=== PATIENT | female | born 1975 | race Caucasian/White ===

== ENCOUNTER 2016-07-05 21:28 | Observation (INO) | payer OTHER ==
[~2016-07-05] VITALS: Ht 175.3 cm; Wt 114.0 kg
[~2016-07-05 21:28] MED LIST: BUSP15 PO; CITA10TA14 PO; LORA-781 PO; ONDA4TAB48 PO
[2016-07-05 21:33] VITALS: BP 138/97; PULSE 115; RESP 18; O2SAT 98
[2016-07-05 23:34] LABS: BASOPHILS % (AUTO) 0.3 % (0-3); EOSINOPHILS % (AUTO) 2.3 % (0-5); Mean Corpuscular Hemoglobin 31.5 pg (27.0-35.0); NEUTROPHILS % (AUTO) 66.1 % (40-74); Platelet Count 245 bil/L (150-400)
[2016-07-05 23:45] LABS: APPEARANCE,URINE CLEAR (CLEAR,HAZY); COLOR,URINE YELLOW (YELLOW); OCCULT BLOOD,URINE NEGATIVE (NEGATIVE); UROBILINOGEN,URINE NORMAL (NORMAL)
--- NOTE | 2016-07-05 23:51 | ED.REPORT ---
HPI-Neurologic Deficit Date of Service Jul 05, 2016 ED Provider: Costa Davis DO A 41 year old female with a medical history including fibromyalgia, Grave's disease, Raynaud's phenomenon and intermittent tachycardia presents to the ED accompanied by her spouse with waxing and waning facial numbness (right > left) onset 22:00 yesterday evening while laying in bed. The patient also reports mild aphasia, blurry vision, bilateral leg weakness, and tongue numbness onset just prior to arrival, which has now resolved. She denies fever. Nursing Notes Stated Complaint: FACE NUMB, HARD TIME SWALLOWING Chief Complaint: General Complaint Nursing Notes Reviewed: Yes Allergies: Coded Allergies: gluten (Verified Allergy, Severe, 07/06/16) confirmed celiac disease midazolam HCl (Verified Allergy, Severe, Anaphylaxis, 07/05/16) Penicillins (Verified Adverse Reaction, Unknown, 07/05/16) Sulfa (Sulfonamide Antibiotics) (Verified Adverse Reaction, Unknown, ) Uncoded Allergies: BENZYL PEROXIDE (Adverse Reaction, Unknown, face broke out, 10/18/15) Scheduled Baclofen (Baclofen) 20 Mg Tablet 40 MG PO HS Buspirone (Buspirone) 30 Mg Tablet 30 MG PO BID Cyclobenzaprine (Cyclobenzaprine) 10 Mg Tablet 10 MG PO TIDWM Pregabalin (Lyrica) 150 Mg Capsule 150 MG PO BID Quetiapine Fumarate (Quetiapine Fumarate) 300 Mg Tablet 300 MG PO HS Topiramate (Topamax) 25 Mg Tablet 25 MG PO HS hydrOXYzine Hcl (HydrOXYzine Hcl) 25 Mg Tablet 25 MG PO BIDAC hydrOXYzine Hcl (HydrOXYzine Hcl) 25 Mg Tablet 50 MG PO DAILYWD Miscellaneous Medications Buprenorphine (Butrans) 1 Each Patch.tdwk 1 EACH TD Duloxetine (Cymbalta) 60 Mg Capsule.dr 60 MG PO Ondansetron (Ondansetron) 4 Mg Tablet 4 MG PO General Time Seen by Provider: 22:47 Chief Complaint Other (Facial Numbness) Hx Obtained From: Patient, Spouse Arrived By: Walk-in Sudden in Onset?: Yes Onset Occurred: Yesterday Symptom Duration: Since onset Severity: Current: No pain currently Severity: Maximum: No pain Associated with: Denies: Fever Pertinent Negative: Relieved by nothing Immunizations: Unknown Recent Healthcare: No recent doctor visit Similar Sx Previous: No Risk Factors NIH Stroke Scale Level of Consciousness: Alert and responsive (0) Open/Close Eyes/Hand Pneumatic Tester: Performs both tasks (0) Horizontal EO Movements: None (0) Visual Bonds: No visual loss (0) Facial Palsy: Normal symmetry (0) Right Arm Motor Drift (10s): No drift 10 sec (0) Left Arm Motor Drift (10s): No drift 10 sec (0) Right Leg Motor Drift (5s): No drift 5 sec (0) Left Leg Motor Drift (5s): No drift 5 sec (0) Limb Ataxia FNF/Heel-Swanson: No ataxia (0) Language Aphasia: No aphasia, normal (0) Dysarthria: No dysarthria, normal (0) NIHSS Score: 0 Time NIHSS Performed: 23:48 Date NIHSS Performed: Jul 05, 2016 Past Medical History Past Medical History Fibromyalgia Osteoarthritis Celiacs disease Grave's disease Endometriosis Raynaud's Phenomenon Intermittent tachycardia Past Surgical History Reports: Cholecystectomy, Tonsillectomy Smoking History Current Every Day Smoker Social History Alcohol Use: Denies alcohol use Drug Use: Denies drug use Other Social History: , Lives with children 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 Ambulatory Status Independent Review of Systems Constitutional: Denies: Fever Eyes: Reports: Blurred bilateral Neurologic: Reports: Numbness (Facial R > L, tongue), Unable to speak (Mild aphasia), Weakness (Bilateral legs) Physical Exam Initial Vital Signs Vital Signs (First) Date Time Temp Pulse Resp B/P Pulse Ox O2 Delivery O2 Flow Rate FiO2 07/05/16 21:33 36.3 115 18 138/97 98 Room Air Initial VS: Reviewed Neck: Supple, Full range of motion Skin: Warm, Dry, No cyanosis General/Constitutional: Awake, Alert Behavior: Positive: Anxious Head / Eyes: Atraumatic, Normocephalic, EOMI Respiratory / Chest: Breath sounds NL, Breath sounds = bilat, No respiratory distress Cardiovascular: Regular rhythm, Heart sounds NL Heart Rate / Rhythm: Positive: Tachycardia Neurologic: Oriented X3, Speech NL, No motor deficits, No sensory deficits SEE NIH STROKE SCALE Psychiatric: Cognitive function NL Abnormal Mood/Affect: Positive: Anxious Interpretation & Diagnostics URINE DRUG SCREEN: + Tricyclic Antidepressants Otherwise Negative URINE TEST: Negative Lab Results Interpretation Result Diagram: 07/05/16231907/05/162319 Test 07/05/16 23:00 07/05/16 23:20 Urine Color Yellow (YELLOW) Urine Appearance Clear (CLEAR,HAZY) Urine pH 7.0 (5.0-8.0) Urine Specific [place] <1.005 (1.003-1.035) Urine Protein Negativemg/dL (NEG,TRACE) Urine Glucose (UA) Negativemg/dL (NEGATIVE) Urine Ketones Negativemg/dL (NEGATIVE) Urine Occult Blood Negative (NEGATIVE) Urine Nitrite Positive (NEGATIVE) Urine Bilirubin Negative (NEGATIVE) Urine Urobilinogen Normalmg/dL (NORMAL) Urine Leukocyte Esterase Negative (NEGATIVE) Urine RBC 0-2/hpf (0-2) Urine WBC 0-5/hpf (0-5) Urine Epithelial Cells Few/hpf (NONE-MOD) Urine Crystals None seen (NONE SEEN) Urine Bacteria Moderate/hpf (NONE-FEW) Urine Hyaline Casts None/lpf (NONE) Urine Granular Casts None seen (NONE SEEN) Urine Waxy Casts None seen (NONE SEEN) Urine Red Blood Cell Casts None seen (NONE SEEN) Urine White Blood Cell Casts None seen (NONE SEEN) Urine Mucus None seen (None Seen) Urine Trichomonas None seen (NONE SEEN) Urine Yeast None (NONE SEEN) Urinalysis Comment None Urine Culture Reflexed Indicated White Blood Count 7.5th/mm3 (3.8-10.1) Red Blood Count 4.63mil/mm3 (3.90-5.20) Hemoglobin 14.6g/dL (12.0-15.6) Hematocrit 42.6% (35.0-46.0) Mean Corpuscular Volume 92.0fL (81-100) Mean Corpuscular Hemoglobin 31.5pg (27.0-35.0) Mean Corpuscular Hemoglobin Concent 34.3% (32.0-37.0) Red Cell Distribution Width 13.0% (12.3-15.4) Platelet Count 245bil/L (150-400) Neutrophils (%) (Auto) 66.1% (40-74) Lymphocytes (%) (Auto) 22.5% (14-46) Monocytes (%) (Auto) 8.0% (4-12) Eosinophils (%) (Auto) 2.3% (0-5) Basophils (%) (Auto) 0.3% (0-3) Sodium Level 138mEq/L (134-144) Potassium Level 3.9mEq/L (3.5-5.2) Chloride Level 103mEq/L (97-108) Carbon Dioxide Level 21mmol/L (18-29) Blood Urea Nitrogen 6mg/dL (6-24) Creatinine 0.80mg/dL (0.57-1.00) Estimat Glomerular Filtration Rate 113mL/min (>59) Glucose Level 109mg/dL (60-99) Calcium Level 8.8mg/dL (8.5-10.1) Total Bilirubin 0.5mg/dL (0.0-1.2) Aspartate Amino Transf (AST/SGOT) 23U/L (0-50) Alanine Aminotransferase (ALT/SGPT) 25U/L (0-32) Alkaline Phosphatase 70U/L (25-150) Total Protein 7.7g/dL (6.4-8.4) Albumin 4.3g/dL (3.4-5.0) Triglycerides Level 101mg/dL (0-149) Cholesterol Level 179mg/dL (100-199) LDL Cholesterol, Calculated 120.800mg/dL (0-99) VLDL Cholesterol 20.200mg/dL HDL Cholesterol 38mg/dL (>39) Cholesterol/HDL Ratio 4.71 (0.0-4.4) HCG Beta Subunit < 0.500mIU/mL Hold Willams Top Tube Received (Received) ECG Interpretation ECG Interpretation: Sinus tachycardia rate 106 Otherwise normal Time: 22:11 Interpreted by: ED physician CT Head Interpretation CONCLUSION: Normal non-contrast CT scan of the head. Transmitted to ED at 07/06/2016 - 1:42:18 AM PST Study: Head CT no contrast Interpretation / Wet Read by: Interpret - Radiologist Re-Eval/Medical Decision Med Decision/Clinical Course 41-year-old female presents with potential vascular territory stroke symptoms. Her deficits have resolved. Her exam is consistent with possible TIA. CT was normal. We will start her on aspirin therapy and admit for the remainder of a stroke workup. Source of Hx: Old records Re-Evaluation/Progress : Time of Eval: 23:56 Patient Status: Condition improved Re-Evaluation/Progress Note: Discussed with patient diagnosis and plan for admit. Patient agrees with plan for care and all questions were addressed. Consultation : Referral / Consult Name: Alexx Herr MD Consulted With: Hospitalist Call Returned at: 03:04 Haircutter: Agrees with eval, Agrees with plan, Accepts admit Counseled Regarding: Diagnosis, Need for admission Discharge & Departure Impression: Primary Impression: TIA (transient ischemic attack) Transient cerebral ischemia type: unspecified Qualified Code: G45.9 - Transient cerebral ischemic attack, unspecified Additional Impression: UTI (urinary tract infection) Urinary tract infection type: acute cystitis Hematuria presence: without hematuria Qualified Code: N30.00 - Acute cystitis without hematuria Disposition: ADMITTED TO HOSPITAL Discharge Condition All VS Reviewed: Yes Condition: Stable Referrals: Daniel Narvaez MD (PCP) Zuleika Attestation Portions of this note were transcribed by Vanessa Horn. I, Dr. Davis, personally performed the history, physical exam, and medical decision-making; I reviewed and confirmed the accuracy of the information in the transcribed note. Signed by: Zuleika Champion, 07/06/2016, 03:14 copies to: Daniel Narvaez MD, Todd P DO Jul 05, 2016 23:51 VANESSA HORN Jul 06, 2016 00:01
[2016-07-06] VITALS (10 sets, daily range): BP systolic 108–144; BP diastolic 72–90; PULSE 93–112; RESP 14–20; O2SAT 96–99
[2016-07-06] MEDS ORDERED: Nitrofurantoin Monohyd-Macrocryst 100 mg Capsule PO ONE (02:00)
[2016-07-06] MEDS ORDERED: Alum-Mag Hydrox-Simeth 30 mL Suspension PO PRN (03:45)
[2016-07-06] MEDS ORDERED: Polyethylene Glycol (PEG) 17 Gm Powder PO PRN (03:45)
--- NOTE | 2016-07-06 04:28 | PCM.HPMED ---
Subjective Date of Service Jul 06, 2016 Primary Provider: Admitting Physician: Alexx Herr MD Primary Care Physician: Daniel Narvaez MD Attending Physician: Alexx Herr MD Chief Complaint: Facial numbness, aphasia History of Present Illness: Patient is a 41 year old female with a history of tachycardia, fibromyalgia, Celiac disease, Raynaud's, and endometriosis. She presented to [facility] on with facial numbness. She reports the first incident happened yesterday while she was laying in bed. She compared that feeling to getting your mouth numbed for dental work. It lasted for a period of minutes and resolved spontaneously. Today it happened again while she was sitting on the couch talking with her . She had right sided facial numbness followed by aphasia, difficulty swallowing and difficulty moving her tongue. She also reported some blurry vision and a sensation of her eyes being heavy. She states that her told her it appeared the right eye was drooping. It lasted for a period of minutes that then resolved spontaneously. She denies any unusual weakness of her extremities. She denies any fever or chills. She has not had cold or flu type symptoms recently. She denies chest pain, shortness of breath, nausea, vomiting and diarrhea. She does report some dysuria. She has an ongoing issue with urinary incontinence and recently began using a new brand of pads. The dysuria began after that as well as mild suprapubic pain and low back pain. In the ED the patient is afebrile with a heart rate of 115, respiratory rate of 18, blood pressure of 138/97, and O2 saturation of 98% on room air. Labs were unremarkable. CT head was normal. Patient admitted to complete work up for TIA. Discussed with Dr. Davis. Review of Systems: A comprehensive review of systems was conducted with the patient and found to be negative except as above in the history of present illness. Allergies Coded Allergies: gluten (Verified Allergy, Severe, 07/06/16) confirmed celiac disease midazolam HCl (Verified Allergy, Severe, Anaphylaxis, 07/05/16) Penicillins (Verified Adverse Reaction, Unknown, 07/05/16) Sulfa (Sulfonamide Antibiotics) (Verified Adverse Reaction, Unknown, ) Uncoded Allergies: BENZYL PEROXIDE (Adverse Reaction, Unknown, face broke out, 5/14/16) Home Medications Incomplete per patient recall: Topamax Hydroxyzine TID Cyclobenzaprine TID Cymbalta 60 mg QAM, 30 mg QPM Seroquel HS Buspar BID Lyrica BID Butran patch 10 mcg/hr once weekly PMH Fibromyalgia Tachycardia (undergoing workup) Celiac disease (strict gluten free diet) Raynaud's phenomenon Endometriosis Grave's disease (reportedly in remission) Family History Aunt - [place] with history of stroke Dad - [place] at age 40; brain tumor with seizures Mom - CAD, atrial fibrillation, Type 2 DM Social History Hx Alcohol Use: No Hx Substance Use: No Hx Tobacco Use: Yes (smoked for 1 year, quit 2 years ago) Smoking Status: Former Smoker Living Arrangement: with Family Exam Vital Signs Vital Sign - Last Date Time Temp Pulse Resp B/P Pulse Ox O2 Delivery O2 Flow Rate FiO2 07/06/16 02:40 37 112 18 144/86 99 Room Air Exam Alert and oriented x3, no acute distress but anxious Head atraumatic, normocephalic PERRLA, EOMI, sclera anicteric; peripheral vision intact Mucus membranes moist, no oral thrush observed No cervical lymphadenopathy, neck supple, nontender No JVD noted Cardiac tones regular rate and rhythm with no murmur appreciated Lungs clear to auscultation bilaterally with adequate respiratory effort No abdominal tenderness, non-distended, normoactive bowel tones, soft Fitzgerald absent Radial pulses normal and equivalent bilaterally, dorsalis pedis pulses normal and equivalent bilaterally No cyanosis, clubbing or edema No ulcerations/open wounds Cranial nerves appear to be fully intact, normal speech, patient can move upper and lower limbs grossly; muscle strength intact in the upper and lower extremities, negative [id number], negative [id number] Lab and Diagnostics Result Diagram: 07/05/16 23207/05/16 2320 X-Rays, CTs and MRIs CT head: Normal non-contrast CT of the head. J Carlos Burkett, 12-lead ECG Rate 115 QTc 431 Sinus tachycardia Assessment & Plan Patient is a 41 year old female with a history of tachycardia, fibromyalgia, Celiac disease, Raynaud's, and endometriosis. She presented to [facility] on with facial numbness, aphasia, dysphagia, and possible facial droop. Symptoms have resolved and CT negative. Plan to admit for further workup of CVA. 1. Possible TIA/stroke, acute, present on admission. - Risk factors include obesity, smoking history, family history of vascular disease. - MR stroke protocol ordered and pending. - Echocardiogram ordered and pending. - A1c, lipid panel ordered and pending. - Begin aspirin 81 mg daily. - Begin atorvastatin 40 mg HS. - Physical therapy evaluation ordered. - Speech therapy evaluation ordered. - Neuro checks Q4. 2. Dysuria, acute, present on admission. - UA with bacteria but no WBC's in urine. More likely represents dirty catch. - Macrobid given in ED x1. Will not continue at this time. - Patient reports irritation secondary to use of new incontinence pad product. Recommend cessation of that product and monitoring of symptoms. 3. Fibromyalgia, chronic, presume stable. - Would like to verify medication regimen prior to administering anything. Med rec needs to be done. 4. Tachycardia, ongoing. - Outpatient work up initiated. Patient reports Holter monitor. - Echo to be done as above in #1. - Continue telemetry. 5. Celiac disease, chronic, presume stable. - When patient passes swallow, STRICT GLUTEN FREE DIET. 6. Medication reconciliation: - Patient could not recall all doses or schedule of medications. - Please have bring in bottles/list or verify with pharmacy. - Bowel regimen PRN. - Antiemetic available PRN. - Antacid available PRN. - Tylenol available PRN mild pain, fever. Patient admitted under observation status with expected length of stay less than 2 midnights for severity of present symptoms, complexities of treatment plan and risk for adverse events. PCP Daniel Narvaez MD GI Prophylaxis: Not indicated VTE Prophylaxis: SCDs Resuscitation Status: CPR: Attempt Resuscitation Attending Statement The patient was seen and examined together with Dr. Claire on 07/06 and I agree with the history, exam and plan as outlined in the note above. copies to: Daniel Narvaez MD, Jennifer E DO Jul 06, 2016 04:28 Alexx Herr MD Jul 06, 2016 05:11
[2016-07-06] MEDS ORDERED: PREG150C PO (04:52)
[2016-07-06] MEDS ORDERED: QUET300T44 PO (04:52)
[2016-07-06] MEDS ORDERED: BUPR1PAT4 TD (04:52)
[2016-07-06] MEDS ORDERED: HYDR-656 PO ×2 (04:52)
[2016-07-06] MEDS ORDERED: BACL20TA PO (04:52)
[2016-07-06] MEDS ORDERED: DULO60CA42 PO (04:52)
[2016-07-06] MEDS ORDERED: TOPI25TA26 PO (04:52)
[2016-07-06] MEDS ORDERED: ONDA-53 PO (04:55)
[2016-07-06] MEDS ORDERED: BUSP30TA2 PO (04:55)
[2016-07-06] MEDS ORDERED: CYCL10TA9 PO (04:58)
--- NOTE | 2016-07-06 06:25 | NUR ---
Admit to 1014 Pt arrived from ED, stable to transfer self to bed. Alert and fully oriented; reports episodes of altered sensation in head and neck, no symptoms currently. Passed RN swallow eval, placed on puree/ honey thick diet until full swallow eval today. Denies significant pain. Educated about fall prevention and safety especially in light of recent symptoms, at bedside to assist when out of bed. Oriented to hospital routines, plan for the day, hourly rounding ongoing.
--- NOTE | 2016-07-06 07:56 | DRSVH ---
PROCEDURE: CT BRAIN WITHOUT CONTRAST ([id number]) INDICATIONS: right facial numbness, dysarthria, visual loss TECHNIQUE: Noncontrast 4.5 mm thick angled axial sections acquired from the foramen magnum to the vertex, with c oronal reformats. COMPARISON: None. FINDINGS: Preliminary report by police shift commander radiology Image quality: Excellent. CSF spaces: Basal cisterns are patent. No extra-axial fluid collections. Ventricles are normal in size and shape. Brain: No midline shift. No intracranial masses or hemorrhage. Shipman-white matter interface is norm al. Skull and face: Calvarium and visualized facial bones are intact, without suspicious lesions. Sinuses: Visualized sinuses and mastoids are clear. IMPRESSION: 1. Normal CT brain scan. Findings are concordant with the preliminary report Dictated by: Carrington Han M.D. on 07/06/2016 at 7:53 Approved by: Carrington Han M.D. on 07/06/2016 at 7:55
--- NOTE | 2016-07-06 10:35 | DRSVH ---
PROCEDURE: MRI STROKE PROTOCOL ([id number]) Pre- and post-contrast brain MRI, non-contrast brain MR angiogram, pre- and postcontrast neck MR emery ogram INDICATIONS: aphasia, dysphagia, facial numbness TECHNIQUE: Brain: Noncontrast axial T1 spin echo, axial T2 fast spin echo, sagittal and axial FLAIR, coronal T2 fast spin echo, axial gradient echo, axial diffusion and ADC through the brain. After the administr ation of contrast, axial 3D VIBE of the cranial vasculature and brain. Brain MRA: Non-contrast 3-D time of flight MR angiogram, with multiple svgnkvn-lstbbqzhd-znswgbdccq (MIP) reformats performed. Neck MRA: Axial and sagittal TruFISP through the neck. Coronal dynamic MR angiogram during administ ration of contrast in the arterial and venous phases, with 3-dimenstional gmewehn-raywspxbr-kdmzjkcrv n (MIP) reformats constructed from subtraction images. COMPARISON: [facility], CT, CT BRAIN WO CON, 07/06/2016, 1:22. [facility], M R, MR BRAIN WO CON, 04/02/2015, 18:58. FINDINGS: Image quality: Excellent. BRAIN: CSF spaces: Ventricles are normal in size and shape. Basal cisterns are patent. No extra-axial flu id collections. Brain: No intracranial bleeds or mass effects. Shipman-white matter interface is normal. Diffusion we ighted images show no acute ischemic insults. Brainstem appears normal. Normal intravascular flow v oids are present. No abnormal intracranial enhancement. Skull and face: Calvarial marrow signal is normal. Orbits appear normal. Sinuses: Sinuses and mastoids are clear. BRAIN MR ANGIOGRAM: Anterior circulation: Intracranial internal carotid arteries are normal in size and enhancement. Th e flow within the paired anterior cerebral arteries is normal and symmetric. The flow within the mid dle cerebral arteries is normal and symmetric. The anterior communicating artery is seen. No stenos es, occlusions, or aneurysms. Posterior circulation: The visualized portions of the vertebral arteries demonstrate normal caliber, and join to form a normal appearing basilar artery. The flow within the posterior cerebral arteries is normal and symmetric. No stenoses, occlusions, or aneurysms. NECK MR ANGIOGRAM: Carotids: Great vessels demonstrate a conventional anatomy as they arise from the aortic arch. The origins of the common carotid arteries appear patent. The calibers and courses of both common caroti d arteries are normal. The bifurcation regions appear normal bilaterally. The internal carotid chioma tsu demonstrate normal course and caliber. Posterior circulation: The origins of the vertebral arteries appear patent. More superior portions of both vertebral arteries demonstrate normal course and caliber, and join to form a normal appearing basilar artery. Miscellaneous: Subclavian arteries appear patent. Pre-contrast images through the neck show no soft tissue abnormalities. IMPRESSION: BRAIN MRI: 1. No acute intracranial abnormality. No recent infarct. 2. No explanation for aphasia and facial numbness. BRAIN MR ANGIOGRAM: Negative cerebral MR angiography. NECK MR ANGIOGRAM: 1. No internal carotid artery stenosis bilaterally. 2. Patent bilateral vertebral arteries. The estimate of stenosis included in the report of the imaging study was calculated using the NASCET method Dictated by: Qasim Horn M.D. on 07/06/2016 at 10:19 Approved by: Qasim Horn M.D. on 07/06/2016 at 10:34
[2016-07-06] MEDS ORDERED: 0.9% Sodium Chloride 250 ML ONE (11:11)
--- NOTE | 2016-07-06 11:24 | NUR ---
Evaluation completed. Please go to "Notes" then click on "Assessments and Notes" (bottom left corner of screen). Then select appropriate discipline tab on top of screen.
[2016-07-06] MEDS: cefTRIAXone Inj 2,000 MG in Dextrose 5% Minibag Plus 50 ML IV SCH (11:33)
--- NOTE | 2016-07-06 13:28 | NUR ---
NEURO P- Patient experiencing TIA-like symptoms: numbness and tingling on RIGHT side of face, RIGHT eye drooping, aphasia, and dysphagia. Began having admitting symptoms again around 1130 this am, notified staff. I- Patient is scheduled to have EEG to determine other possible cause for symptoms. E- Symptoms resolved after about 5 min today. Vital signs stable. Head CT and MRI clear. Patient is on telemetry for sinus tachycardia.
--- NOTE | 2016-07-06 13:36 | NUR ---
NUMBNESS/NEURO P- At 1130 patient c/o numbness lips, pressure right side of face, and warmth in back. "feeling funny". Good and equal pupil response, brief word searching, strong bilateral environmental protection inspector strength, no mouth deviation. I- Neuro checks, ([place]) made aware, calm and quiet approach with patient. E-Patient states "I kind of back to normal" 5 minutes later. MD ordered EEG and ECHO, awaiting results.
--- NOTE | 2016-07-06 17:49 | DRSVH ---
[facility] [address] [place] [address] Echocardiogram Report Name: RICK FERRIS Date : 07/06/2016 Height: 69 in Hospital Exam Location: [facility] Weight: 250 lb Gender: Female BSA: 2.3 m2 : 1975 Age: 41 yrs BP: 125/90 mmHg Reason For Study: TIA Ordering Physician: HOSPITALIST SVerformed By: Zahida Dawkins Referring Physician: Dr. Dainel Narvaez Interpretation Summary The left ventricle is normal in size, wall thickness, and systolic function without any focal wall motion abnormalities. The ejection fraction is estimated to be 60-65%. Assessment of diastolic parameters indicates a relaxation abnormality of the left ventricle, consistent with normal filling pressures. The right ventricle is normal in size and function. Both atria are normal in size. There is no Doppler evidence for an atrial septal defect. Injection of contrast documented an interatrial shunt. Bubbles do appear in the left ventricle within 3 beats without Valsalva maneuver. There is no significant valvular heart disease. The aortic root is normal size. Procedure: A two-dimensional transthoracic echocardiogram with color flow and Doppler was performed. The apical views were difficult to obtain and are suboptimal in quality. The subcostal views were not obtained due to no visualization. A contrast injection of Definity was performed to improve assessment of LV function. Contrast was injected into an intravenous site in the right arm. A total of 4 cc of contrast was given. There is no prior echocardiogram noted for this patient. A saline contrast injection was performed to assess for cardiac shunting. The patient was in normal sinus rhythm during the exam. The patient did well with the Definity contrast. Left Ventricle: The left ventricle is normal in size, wall thickness, and systolic function without any focal wall motion abnormalities. The ejection fraction is estimated to be 60-65%. Spectral Doppler of the mitral valve is reversed, with an E/A wave ratio < 1.0. Assessment of diastolic parameters indicates a relaxation abnormality of the left ventricle, consistent with normal filling pressures. Right Ventricle: The right ventricle is normal in size and function. Atria: Both atria are normal in size. There is no Doppler evidence for an atrial septal defect. Injection of contrast documented an interatrial shunt. Bubbles do appear in the left ventricle within 3 beats without Valsalva maneuver. Mitral Valve: The mitral valve is grossly normal. There is trace mitral regurgitation. Aortic Valve: The aortic valve is not well visualized. The aortic valve opens well. No aortic regurgitation is present. Tricuspid Valve: The tricuspid valve leaflets are thin and pliable. No tricuspid regurgitation. Pulmonic Valve: The pulmonic valve is not well visualized. There is no pulmonic valvular regurgitation. There is no significant valvular heart disease. Great Vessels: The aortic root is normal size. The dimensions of the ascending aorta are normal. The pulmonary artery is not well visualized, but is probably normal size. The inferior vena cava was not visualized. Pericardium/ Pleura There is no pericardial effusion. There is no pleural effusion. MMode/2D Measurements & Calculations LVIDd: 3.6 cm LA dimension: 3.4 cm RA long axis LVOT diam LVIDs: 2.5 cm FS: 31.7 % LA A2 area: 16.8 cm RA area AoV Opening IVSd: 1.1 cm LA A4 area: 16.1 cm LVPWd: 0.81 cm LA length (vol): 4.9 cm: 14.2 cm Ao root diam LA vol: 47.2 ml RA vol LA vol index : 35.4 ml asc Aorta RA Diam: 3.1 cm : 20.8 ml/m2 : 15.6 mm2 LV narayanan. diameter/BSA LV sys. diameter/BSA (cm/m^2): 1.6 (cm/m^2): 1.1 Doppler Measurements & Calculations Ao V2 max MV E max reginaldo MV E/A: 0.81 PA V2 max : 154.1 cm/sec : 85.2 cm/sec Med Peak E' Reginaldo : 95.8 cm/sec Ao max PG MV A max reginaldo PA mean PG : 9.5 mmHg : 105.5 cm/sec E/E' med: 10.2 Ao mean PG MV P1/2t: 38.5 msec Lat Peak E' Reginaldo PA Accel Time : 0.09 sec LVOT Max Reginaldo E/E' lat: 6.9 : 127.7 cm/sec E/e' average: 8.6 KURTIS(I,D): 2.8 cm sev ratio MV dec time MV P1/2t max reginaldo Ao V2 mean LV V1 max PG : 0.13 sec : 113.0 cm/sec Ao V2 VTI: 26.3 cm LV V1 VTI MVA(P1/2t): 5.7 cm2 : 24.0 cm KURTIS(V,D): 2.5 cm2 PA V2 mean KURTIS indexed to BSA : 76.6 cm/sec (cm^2/m^2): 1.2 Reading Physician:PM
[2016-07-06] MEDS: DULoxetine 30 mg DR Capsule PO SCH (18:27)
[2016-07-06] MEDS: BusPIRone 15 mg Dividose Tablet PO SCH (21:26)
[2016-07-06] MEDS: Ondansetron 2 mg/mL 2 mL Inj IV PRN (21:27)
[2016-07-06] MEDS: LORazepam 1 mg Tablet PO PRN (22:13)
--- NOTE | 2016-07-06 23:56 | PCM.PNMED ---
Subjective Date of Service Jul 06, 2016 Subjective Patient developed numbness of her tongue and lip and perioral area again today. She states the only difference is that she could move her tongue today whereas yesterday she was unable to. Her symptoms rapidly resolved spontaneously. However, she was quite concerned. Exam Vital Signs Vital Sign - Last Date Time Temp Pulse Resp B/P Pulse Ox O2 Delivery O2 Flow Rate FiO2 07/06/16 22:00 94 07/06/16 21:10 36.7 20 108/72 98 Room Air Intake and Output 07/05/16 07/05/16 07/06/16 Cumulative From/Thru 15:00 23:00 07:00 07/05/16 21:33 - 07/06/16 05:38 Intake Total 0 ml 0 ml Output Total 400 ml 400 ml Balance -400 ml -400 ml Intake Oral 0 ml 0 ml Output Urine Total 400 ml 400 ml # Voids 1 1 # Bowel Movements 0 0 Exam General: Patient is experiencing a significant amount of anxiety due to all of her medications being on hold. HEENT: Head is atraumatic normocephalic. Eyes: Pupils are equally round and reactive to light and accommodation. Extraocular muscles are intact. Sclera are white anicteric. Subconjunctival mucosa is pink. Ears and nose are unremarkable. Oropharynx: There is no mucosal lesions, there is no thrush, there is no pharyngitis. Neck: Is supple, there are no nodes or masses or tenderness. Chest: Is clear to auscultation and percussion. There are no rales, rhonchi, wheezes or rubs. Heart: Rate, rhythm is regular. There is no murmur, rub or gallop. Abdomen: Good bowel sounds are present. Abdomen is obese, soft, nontender, no organomegaly or masses were appreciated. Extremities: Are symmetrical and well perfused. There is no edema, there is no cellulitis, no rash. Neurologic: There are no focal neurological deficits. Cranial nerves II through XII are intact. There are no sensory or motor deficits. Psychiatric: Patients mood is labile due to concern over all of her medications. Genital: Deferred Rectal: Deferred Lab and Diagnostics Result Diagram: 07/05/16231907/05/16 2320 X-Rays, CTs and MRIs CT head: Normal non-contrast CT of the head. J Carlos Burkett DO PROCEDURE: MRI STROKE PROTOCOL ([id number]) Pre- and post-contrast brain MRI, non-contrast brain MR angiogram, pre- and postcontrast neck MR angiogram INDICATIONS: aphasia, dysphagia, facial numbness TECHNIQUE: Brain: Noncontrast axial T1 spin echo, axial T2 fast spin echo, sagittal and axial FLAIR, coronal T2 fast spin echo, axial gradient echo, axial diffusion and ADC through the brain. After the administration of contrast, axial 3D VIBE of the cranial vasculature and brain. Brain MRA: Non-contrast 3-D time of flight MR angiogram, with multiple maximum- intensity-projection (MIP) reformats performed. Neck MRA: Axial and sagittal TruFISP through the neck. Coronal dynamic MR angiogram during administration of contrast in the arterial and venous phases, with 3-dimenstional ogezpyg-zgblirhfl-lkdycdzzkj (MIP) reformats constructed from subtraction images. COMPARISON: [facility], CT, CT BRAIN WO CON, 07/06/2016, 1:22. [facility], MR, MR BRAIN WO CON, 04/02/2015, 18:58. FINDINGS: Image quality: Excellent. BRAIN: CSF spaces: Ventricles are normal in size and shape. Basal cisterns are patent. No extra-axial fluid collections. Brain: No intracranial bleeds or mass effects. Shipman-white matter interface is normal. Diffusion weighted images show no acute ischemic insults. Brainstem appears normal. Normal intravascular flow voids are present. No abnormal intracranial enhancement. Skull and face: Calvarial marrow signal is normal. Orbits appear normal. Sinuses: Sinuses and mastoids are clear. BRAIN MR ANGIOGRAM: Anterior circulation: Intracranial internal carotid arteries are normal in size and enhancement. The flow within the paired anterior cerebral arteries is normal and symmetric. The flow within the middle cerebral arteries is normal and symmetric. The anterior communicating artery is seen. No stenoses, occlusions, or aneurysms. Posterior circulation: The visualized portions of the vertebral arteries demonstrate normal caliber, and join to form a normal appearing basilar artery. The flow within the posterior cerebral arteries is normal and symmetric. No stenoses, occlusions, or aneurysms. NECK MR ANGIOGRAM: Carotids: Great vessels demonstrate a conventional anatomy as they arise from the aortic arch. The origins of the common carotid arteries appear patent. The calibers and courses of both common carotid arteries are normal. The bifurcation regions appear normal bilaterally. The internal carotid arteries demonstrate normal course and caliber. Posterior circulation: The origins of the vertebral arteries appear patent. More superior portions of both vertebral arteries demonstrate normal course and caliber, and join to form a normal appearing basilar artery. Miscellaneous: Subclavian arteries appear patent. Pre-contrast images through the neck show no soft tissue abnormalities. IMPRESSION: BRAIN MRI: 1. No acute intracranial abnormality. No recent infarct. 2. No explanation for aphasia and facial numbness. BRAIN MR ANGIOGRAM: Negative cerebral MR angiography. NECK MR ANGIOGRAM: 1. No internal carotid artery stenosis bilaterally. 2. Patent bilateral vertebral arteries. The estimate of stenosis included in the report of the imaging study was calculated using the NASCET method 12-lead ECG Rate 115 QTc 431 Sinus tachycardia Cardiac Echo Impressions Echocardiogram Report Name: RICK FERRIS Date : 07/06/2016 Height: 69 in Hospital Exam Location: [facility] Weight: 250 lb Gender: Female BSA: 2.3 m2 : 1975 Age: 41 yrs BP: 125/90 mmHg Reason For Study: TIA Ordering Physician: HOSPITALIST SVerformed By: Zahida Dawkins Referring Physician: Dr. Daniel Narvaez Interpretation Summary The left ventricle is normal in size, wall thickness, and systolic function without any focal wall motion abnormalities. The ejection fraction is estimated to be 60-65%. Assessment of diastolic parameters indicates a relaxation abnormality of the left ventricle, consistent with normal filling pressures. The right ventricle is normal in size and function. Both atria are normal in size. There is no Doppler evidence for an atrial septal defect. Injection of contrast documented an interatrial shunt. Bubbles do appear in the left ventricle within 3 beats without Valsalva maneuver. There is no significant valvular heart disease. The aortic root is normal size. Assessment & Plan Patient is a 41 year old female with a history of tachycardia, fibromyalgia, Celiac disease, Raynaud's, and endometriosis. She presented to [facility] on with facial numbness, aphasia, dysphagia, and possible facial droop. Symptoms have resolved and CT negative. Plan to admit for further workup of CVA. 1. Possible TIA/stroke, acute, present on admission. - Risk factors include obesity, smoking history, family history of vascular disease. - EDC of the brain negative - MR stroke protocol was negative - Echocardiogram ordered was unremarkable - A1c, lipid panel ordered and pending. - Continue aspirin 81 mg daily. - Continue atorvastatin 40 mg HS. - Physical therapy evaluation ordered. - Speech therapy evaluation ordered. - Neuro checks Q4. - Neurology consult with Dr. alvarado if available - Suspect patient has polypharmacy and will need to hold and/or decrease some of her medications in order to reduce interaction all side effects and toxicity. I reviewed her medications with Ann the clinical pharmacist on the floor and we have come up with a treatment plan for now: See orders 2. Dysuria, acute, present on admission. - UA with bacteria but no WBC's in urine. More likely represents dirty catch. - Macrobid given in ED x1. Will not continue at this time. - Patient reports irritation secondary to use of new incontinence pad product. Recommend cessation of that product and monitoring of symptoms. 3. Fibromyalgia, chronic, presume stable. - Would like to verify medication regimen prior to administering anything. Med rec needs to be done. 4. Tachycardia, ongoing. - Outpatient work up initiated. Patient reports Holter monitor. - Echo to be done as above in #1. - Continue telemetry. 5. Celiac disease, chronic, presume stable. - When patient passes swallow, STRICT GLUTEN FREE DIET. 6. Medication reconciliation: - Patient could not recall all doses or schedule of medications. - Please have bring in bottles/list or verify with pharmacy. - Bowel regimen PRN. - Antiemetic available PRN. - Antacid available PRN. - Tylenol available PRN mild pain, fever. Patient admitted under observation status with expected length of stay less than 2 midnights for severity of present symptoms, complexities of treatment plan and risk for adverse events. PCP Daniel Narvaez MD Pain Evaluation: Adequate Pain Control GI Prophylaxis: Not indicated VTE Prophylaxis: SCDs VTE Mechanical Devices: Intermittant Pneumatic CD Resuscitation Status: CPR: Attempt Resuscitation VivienneeRg MD Jul 06, 2016 23:56
[2016-07-07 02:07] VITALS: BP 108/69; PULSE 94; RESP 18; O2SAT 97
[2016-07-07 06:32] VITALS: BP 107/70; PULSE 37; RESP 22; O2SAT 99
[2016-07-07 06:46] LABS: BASOPHILS % (AUTO) 0.3 % (0-3); EOSINOPHILS % (AUTO) 1.5 % (0-5); MONOCYTES % (AUTO) 10.9 % (4-12); Mean Corpuscular Hemoglobin 31.6 pg (27.0-35.0); Mean Corpuscular Volume 93.5 fL (81-100); Platelet Count 226 bil/L (150-400)
--- NOTE | 2016-07-07 07:29 | NUR ---
activity pt had no episodes of numbness or tingling this shift. she expressed extreme anxiety over her medication changes. she had hot flashes, agitation and racing heart. MD notified who ordered 1mg of lorazepam TID prn. she was given her lorazepam and expressed relief. pt also asked if it was ok if she did not take her topamax she said it was her newest medication and that she never had numbness before taking. pharmacy was consulted who said it was a small enough dose that she could safely stop it without tapering. med withheld last night per patient wishes.
[2016-07-07 07:47] LABS: Magnesium 2.2 mg/dL (1.6-2.6); Phosphorus 3.4 mg/dL (2.5-4.9)
[2016-07-07 08:06] VITALS: BP 122/83; PULSE 99; RESP 15; O2SAT 95
[2016-07-07] MEDS: BusPIRone 15 mg Dividose Tablet PO SCH ×2 (08:37→21:14)
[2016-07-07] MEDS: DULoxetine 30 mg DR Capsule PO SCH (08:37)
[2016-07-07] MEDS: Pantoprazole 40 mg ER24 Tablet PO SCH ×2 (08:37→21:14)
[2016-07-07] MEDS: LORazepam 1 mg Tablet PO PRN ×3 (10:19→22:57)
[2016-07-07] MEDS: cefTRIAXone Inj 2,000 MG in Dextrose 5% Minibag Plus 50 ML IV SCH (10:21)
[2016-07-07] MEDS: Ondansetron 2 mg/mL 2 mL Inj IV PRN ×2 (10:29→16:51)
--- NOTE | 2016-07-07 13:50 | NUR ---
EEG/Anxiety P-Patient has anxiety due to unknown cause for TIA symptoms following negative MRI and CT imaging. Physician informed patient of EEG results showing possible seizure activity and scheduled appt with neurologist to discuss possible causes. I-When speaking with the patient, was able to reduce anxiety with communication. E-Patients anxiety level decreased, and was able to return to activities.
[2016-07-07 14:30] VITALS: BP 117/78; PULSE 100; RESP 18; O2SAT 97
--- NOTE | 2016-07-07 14:47 | NUR ---
withdrawal pt feeling shaky, diaphoretic at times, alternately flushing and feeling cold, little bit anxious, gave Lorazepam
[2016-07-07 17:02] VITALS: PULSE 105
[2016-07-07 20:25] VITALS: BP 128/87; PULSE 97; RESP 17; O2SAT 97
[2016-07-07] MEDS: levETIRAcetam 500 mg Tablet PO SCH (22:57)
--- NOTE | 2016-07-07 23:22 | PCM.PNMED ---
Subjective Date of Service Jul 07, 2016 Subjective Patient is feeling very anxious without her medications. However, she is okay with the reduction in her medications. She has no other new complaints. Exam Vital Signs Vital Sign - Last Date Time Temp Pulse Resp B/P Pulse Ox O2 Delivery O2 Flow Rate FiO2 07/07/16 20:25 36.7 97 17 128/87 97 Room Air Intake and Output 07/06/16 07/06/16 07/07/16 Cumulative From/Thru 15:00 23:00 07:00 07/05/16 21:33 - 07/07/16 06:02 Intake Total 666 ml 542 ml 1208 ml Output Total 700 ml 700 ml 1800 ml Balance -34 ml -158 ml -592 ml Intake Oral 666 ml 542 ml 1208 ml Output Urine Total 700 ml 700 ml 1800 ml # Voids 3 4 # Bowel Movements 0 0 0 Exam General: Patient is experiencing a significant amount of anxiety due to all of her medications being on hold. HEENT: Head is atraumatic normocephalic. Eyes: Pupils are equally round and reactive to light and accommodation. Extraocular muscles are intact. Sclera are white anicteric. Subconjunctival mucosa is pink. Ears and nose are unremarkable. Oropharynx: There is no mucosal lesions, there is no thrush, there is no pharyngitis. Neck: Is supple, there are no nodes, or masses, or tenderness. Chest: Is clear to auscultation and percussion. There are no rales, rhonchi, wheezes or rubs. Heart: Rate, rhythm is regular. There is no murmur, rub or gallop. Abdomen: Good bowel sounds are present. Abdomen is obese, soft, nontender, no organomegaly or masses were appreciated. Extremities: Are symmetrical and well perfused. There is no edema, there is no cellulitis, no rash. Neurologic: There are no focal neurological deficits. Cranial nerves II through XII are intact. There are no sensory or motor deficits. Psychiatric: Patients mood is labile due to concern over all of her medications. Genital: Deferred Rectal: Deferred Lab and Diagnostics Result Diagram: 07/07/16 0610 07/07/16 0610 Microbiology Name: RICK FERRIS Age/Sex: 41/F Attend Dr: Alexx Herr MD Acct: [id number] Unit: [id number] Status: ADM [place] Location: [facility] [place] 1014-1 Re07/06/16 Disch: Specimen: [id number] Collected: 07/05/16 Status: RES Req#: [id number] Received: 07/05/16 Source: RANDOM Sp Desc : Subm Dr: JAMIE TEJADA MD Ordered: URINE CULT Procedure Result Verified Site Microbiology BIANCA CULT URINE Preliminary 07/07/16 PRELIMINARY ID GRAM NEG KEYSHAWN, PROBABLE E COLI SUSCEPTIBILITIES TO FOLLOW COLONY COUNT/QUANTITY >100,000 CFU/ml X-Rays, CTs and MRIs CT head: Normal non-contrast CT of the head. J Carlos Burkett DO PROCEDURE: MRI STROKE PROTOCOL ([id number]) Pre- and post-contrast brain MRI, non-contrast brain MR angiogram, pre- and postcontrast neck MR angiogram INDICATIONS: aphasia, dysphagia, facial numbness TECHNIQUE: Brain: Noncontrast axial T1 spin echo, axial T2 fast spin echo, sagittal and axial FLAIR, coronal T2 fast spin echo, axial gradient echo, axial diffusion and ADC through the brain. After the administration of contrast, axial 3D VIBE of the cranial vasculature and brain. Brain MRA: Non-contrast 3-D time of flight MR angiogram, with multiple maximum- intensity-projection (MIP) reformats performed. Neck MRA: Axial and sagittal TruFISP through the neck. Coronal dynamic MR angiogram during administration of contrast in the arterial and venous phases, with 3-dimenstional utoaxmj-mxknerxam-siutlozrhz (MIP) reformats constructed from subtraction images. COMPARISON: [facility], CT, CT BRAIN WO CON, 07/06/2016, 1:22. [facility], MR, MR BRAIN WO CON, 04/02/2015, 18:58. FINDINGS: Image quality: Excellent. BRAIN: CSF spaces: Ventricles are normal in size and shape. Basal cisterns are patent. No extra-axial fluid collections. Brain: No intracranial bleeds or mass effects. Shipman-white matter interface is normal. Diffusion weighted images show no acute ischemic insults. Brainstem appears normal. Normal intravascular flow voids are present. No abnormal intracranial enhancement. Skull and face: Calvarial marrow signal is normal. Orbits appear normal. Sinuses: Sinuses and mastoids are clear. BRAIN MR ANGIOGRAM: Anterior circulation: Intracranial internal carotid arteries are normal in size and enhancement. The flow within the paired anterior cerebral arteries is normal and symmetric. The flow within the middle cerebral arteries is normal and symmetric. The anterior communicating artery is seen. No stenoses, occlusions, or aneurysms. Posterior circulation: The visualized portions of the vertebral arteries demonstrate normal caliber, and join to form a normal appearing basilar artery. The flow within the posterior cerebral arteries is normal and symmetric. No stenoses, occlusions, or aneurysms. NECK MR ANGIOGRAM: Carotids: Great vessels demonstrate a conventional anatomy as they arise from the aortic arch. The origins of the common carotid arteries appear patent. The calibers and courses of both common carotid arteries are normal. The bifurcation regions appear normal bilaterally. The internal carotid arteries demonstrate normal course and caliber. Posterior circulation: The origins of the vertebral arteries appear patent. More superior portions of both vertebral arteries demonstrate normal course and caliber, and join to form a normal appearing basilar artery. Miscellaneous: Subclavian arteries appear patent. Pre-contrast images through the neck show no soft tissue abnormalities. IMPRESSION: BRAIN MRI: 1. No acute intracranial abnormality. No recent infarct. 2. No explanation for aphasia and facial numbness. BRAIN MR ANGIOGRAM: Negative cerebral MR angiography. NECK MR ANGIOGRAM: 1. No internal carotid artery stenosis bilaterally. 2. Patent bilateral vertebral arteries. The estimate of stenosis included in the report of the imaging study was calculated using the NASCET method 12-lead ECG Rate 115 QTc 431 Sinus tachycardia Cardiac Echo Impressions Echocardiogram Report Name: RICK FERRIS AStudelba Date : 07/06/2016 Height: 69 in Hospital Exam Location: [facility] Weight: 250 lb Gender: Female BSA: 2.3 m2 : 1975 Age: 41 yrs BP: 125/90 mmHg Reason For Study: TIA Ordering Physician: HOSPITALIST SVHPerformed By: Zahida Dawkins Referring Physician: Dr. Daniel Narvaez Interpretation Summary The left ventricle is normal in size, wall thickness, and systolic function without any focal wall motion abnormalities. The ejection fraction is estimated to be 60-65%. Assessment of diastolic parameters indicates a relaxation abnormality of the left ventricle, consistent with normal filling pressures. The right ventricle is normal in size and function. Both atria are normal in size. There is no Doppler evidence for an atrial septal defect. Injection of contrast documented an interatrial shunt. Bubbles do appear in the left ventricle within 3 beats without Valsalva maneuver. There is no significant valvular heart disease. The aortic root is normal size. Assessment & Plan Patient is a 41 year old female with a history of tachycardia, fibromyalgia, Celiac disease, Raynaud's, and endometriosis. She presented to [facility] on with facial numbness, aphasia, dysphagia, and possible facial droop. Symptoms have resolved and CT negative. Plan to admit for further workup of CVA. 1. Possible TIA/stroke, acute, present on admission. - Risk factors include obesity, smoking history, family history of vascular disease. - EDC of the brain negative - MR stroke protocol was negative - Echocardiogram ordered was unremarkable - A1c, lipid panel ordered and pending. - Continue aspirin 81 mg daily. - Continue atorvastatin 40 mg HS. - Physical therapy evaluation ordered. - Speech therapy evaluation ordered. - Neuro checks Q4. - Neurology consult with Dr. Fitzpatrick. I spoke with Dr. Fitzpatrick today and he stated that the EEG from yesterday showed evidence of left temporal lobe seizure activity. He will see the patient in consultation. - Suspect patient has polypharmacy and will need to hold and/or decrease some of her medications in order to reduce interaction all side effects and toxicity. I reviewed her medications with Ann, the clinical pharmacist on the floor, and we have come up with a treatment plan for now: See orders we will await further recommendations from Dr. Fitzpatrick of neurology and follow his recommendations 2. Urinary tract infection with Escherichia coli greater than 100,000 colony- forming organisms per milliliter and a 41-year-old female -Dysuria, acute, present on admission, consistent with tract infection. - UA with bacteria and positive nitrate with 05 white blood cells - Macrobid given in ED x1. Will not continue at this time. - We will continue Rocephin day #2 pending susceptibility reports on the Escherichia coli - Patient reports irritation secondary to use of new incontinence pad product. Recommend cessation of that product and monitoring of symptoms. 3. Fibromyalgia, chronic, presume stable. - Patient on a significant number of medications some prescribed by her psychiatrist some prescribed by her pain medicine doctor - I suspect patient has a problem with polypharmacy and will await Dr. Lawrence Fitzpatrick's recommendations 4. Tachycardia, ongoing. - Outpatient work up initiated. Patient reports Holter monitor. - Echo to be done as above in #1. - Continue telemetry. 5. Celiac disease, chronic, presume stable. - When patient passes swallow, STRICT GLUTEN FREE DIET. - Bowel regimen PRN. - Antiemetic available PRN. - Antacid available PRN. - Tylenol available PRN mild pain, fever. Disposition: As patient is having seizures suspect she will be moved to inpatient status and discharge plans as per neurology. PCP Daniel Narvaez MD Pain Evaluation: Adequate Pain Control GI Prophylaxis: Not indicated VTE Prophylaxis: SCDs VTE Mechanical Devices: Intermittant Pneumatic CD Resuscitation Status: CPR: Attempt Resuscitation JacksonReg MD Jul 07, 2016 23:21
[2016-07-08 00:05] VITALS: BP 119/81; PULSE 96; RESP 16; O2SAT 96
--- NOTE | 2016-07-08 05:00 | NUR ---
Anxiety in room at start of shift and during consult with neurologist. Lorazepam 1x this shift for anxiety. IV saline lock patent, blood at site is dry and dressing is intact. Pt states it feels 'puffy' if she bends her arm, but it flushes with ease. Care Continues
[2016-07-08 06:00] VITALS: BP 105/72; PULSE 90; RESP 16; O2SAT 97
[2016-07-08 06:43] VITALS: PULSE 101
[2016-07-08 08:00] VITALS: PULSE 88
[2016-07-08 08:14] LABS: BASOPHILS % (AUTO) 0.4 % (0-3); MONOCYTES % (AUTO) 9.8 % (4-12); Mean Corpuscular Hemoglobin 31.7 pg (27.0-35.0); Mean Corpuscular Volume 92.9 fL (81-100); NEUTROPHILS % (AUTO) 49.5 % (40-74); Platelet Count 139 bil/L (150-400)
[2016-07-08 08:24] LABS: Magnesium 2.1 mg/dL (1.6-2.6)
[2016-07-08 08:38] VITALS: BP 130/88; PULSE 83; RESP 17; O2SAT 98
--- NOTE | 2016-07-08 08:50 | NUR ---
Social Work Screen Note: Patient is a 41 yr old female admitted on 07/06/16 for TIA UTI. Patient payer as [employer]. Patient PCP as MD Narvaez. Patient resides in [facility] with . Patient ambulating and participated with therapy. PT notes reflect home no skilled needs. Per report from MD, patient EEG positive for seizures. SW to follow. PLAN: Home with , via POV pending clinical course. SW to follow. Nancy CHANDRA
[2016-07-08] MEDS: DULoxetine 30 mg DR Capsule PO SCH (09:42)
[2016-07-08] MEDS: Pantoprazole 40 mg ER24 Tablet PO SCH (09:42)
[2016-07-08] MEDS: BusPIRone 15 mg Dividose Tablet PO SCH (09:43)
[2016-07-08] MEDS: levETIRAcetam 500 mg Tablet PO SCH (09:43)
[2016-07-08] MEDS ORDERED: 0.9% Sodium Chloride 100 ML ONE (09:48)
[2016-07-08] MEDS: cefTRIAXone Inj 2,000 MG in Dextrose 5% Minibag Plus 50 ML IV SCH (09:53)
[2016-07-08] MEDS: Ondansetron 2 mg/mL 2 mL Inj IV PRN (11:01)
[2016-07-08] MEDS: LORazepam 1 mg Tablet PO PRN (12:43)
[2016-07-08 13:04] VITALS: BP 125/81; PULSE 98; RESP 16; O2SAT 97
--- NOTE | 2016-07-08 13:50 | NUR ---
LOC P- Patient was drowsy and struggling to stay attentive in conversation in morning assessment. Patient was mumbling and eyes partially open likely due to new medication. I- Educated patient on current medications and side effects of new medication: drowsiness, dizziness, and weakness. Talked to patient about notifying staff if symptoms worsen or if help is needed. Encouraged patient to use call light. E- Patient became more responsive following discussion and education of current medications.
--- NOTE | 2016-07-08 15:30 | PCM.DIMED ---
Discharge Instructions Date of Service Jul 08, 2016 Dates of Hospitalization Jul 06, 2016 at 02:40 Discharge Diagnosis Discharge Diagnosis Seizure activity Diet Heart Healthy Activity No restrictions (May resume usual activity gradually as tolerated) Call your provider Fever or Chills, Shortness of breath, Bleeding, Chest pain, Vomitting, Excessive diarrhea, Weakness (unilateral), Other Patient Instructions Follow-up Provider: Daniel Narvaez MD Follow-up with PCP in: 1 week Provider: Lawrence Fitzpatrick MD Follow-up in: 2 weeks Reg Palafox MD Jul 08, 2016 15:30
[2016-07-08] MEDS ORDERED: ATOR40TA69 PO (15:36)
[2016-07-08] MEDS ORDERED: ASPI81TA3 PO (15:36)
[2016-07-08] MEDS ORDERED: LORA-303 PO (15:36)
[2016-07-08] MEDS ORDERED: QUET100T69 PO (15:36)
[2016-07-08] MEDS ORDERED: KEP500TA PO (15:36)
[2016-07-08] MEDS ORDERED: BACL10TA PO (15:36)
--- NOTE | 2016-07-08 17:31 | NUR ---
Discharge Pt discharged at 1715 to private vehicle with family. Pt has discharge instructions, rx's and care notes. All questions answered. Pt has no c/o pain, A&O x 3, MILTON, anxiety well controlled. IV removed intact and telemetry removed. Pt has all belongings.
--- NOTE | 2016-07-09 02:03 | PCM.DC.MED ---
Discharge Summary Date of Service Jul 08, 2016 Dates of Hospitalization Date of Hospital Admission Jul 06, 2016 at 02:40 Date of Discharge: Jul 08, 2016 Providers: Admitting Physician: Alexx Herr MD Primary Care Physician: Daniel Narvaez MD Attending Physician: Alexx Herr MD Diagnosis at Time of Discharge Diagnosis at Time of Discharge Seizure activity Procedures XRay, CTs & MRIs CT head: Normal non-contrast CT of the head. J Carlos Burkett DO PROCEDURE: MRI STROKE PROTOCOL ([id number]) Pre- and post-contrast brain MRI, non-contrast brain MR angiogram, pre- and postcontrast neck MR angiogram INDICATIONS: aphasia, dysphagia, facial numbness TECHNIQUE: Brain: Noncontrast axial T1 spin echo, axial T2 fast spin echo, sagittal and axial FLAIR, coronal T2 fast spin echo, axial gradient echo, axial diffusion and ADC through the brain. After the administration of contrast, axial 3D VIBE of the cranial vasculature and brain. Brain MRA: Non-contrast 3-D time of flight MR angiogram, with multiple maximum- intensity-projection (MIP) reformats performed. Neck MRA: Axial and sagittal TruFISP through the neck. Coronal dynamic MR angiogram during administration of contrast in the arterial and venous phases, with 3-dimenstional lfekixc-fvfupdzyx-becfyceoln (MIP) reformats constructed from subtraction images. COMPARISON: [facility], CT, CT BRAIN WO CON, 07/06/2016, 1:22. [facility], MR, MR BRAIN WO CON, 04/02/2015, 18:58. FINDINGS: Image quality: Excellent. BRAIN: CSF spaces: Ventricles are normal in size and shape. Basal cisterns are patent. No extra-axial fluid collections. Brain: No intracranial bleeds or mass effects. Shipman-white matter interface is normal. Diffusion weighted images show no acute ischemic insults. Brainstem appears normal. Normal intravascular flow voids are present. No abnormal intracranial enhancement. Skull and face: Calvarial marrow signal is normal. Orbits appear normal. Sinuses: Sinuses and mastoids are clear. BRAIN MR ANGIOGRAM: Anterior circulation: Intracranial internal carotid arteries are normal in size and enhancement. The flow within the paired anterior cerebral arteries is normal and symmetric. The flow within the middle cerebral arteries is normal and symmetric. The anterior communicating artery is seen. No stenoses, occlusions, or aneurysms. Posterior circulation: The visualized portions of the vertebral arteries demonstrate normal caliber, and join to form a normal appearing basilar artery. The flow within the posterior cerebral arteries is normal and symmetric. No stenoses, occlusions, or aneurysms. NECK MR ANGIOGRAM: Carotids: Great vessels demonstrate a conventional anatomy as they arise from the aortic arch. The origins of the common carotid arteries appear patent. The calibers and courses of both common carotid arteries are normal. The bifurcation regions appear normal bilaterally. The internal carotid arteries demonstrate normal course and caliber. Posterior circulation: The origins of the vertebral arteries appear patent. More superior portions of both vertebral arteries demonstrate normal course and caliber, and join to form a normal appearing basilar artery. Miscellaneous: Subclavian arteries appear patent. Pre-contrast images through the neck show no soft tissue abnormalities. IMPRESSION: BRAIN MRI: 1. No acute intracranial abnormality. No recent infarct. 2. No explanation for aphasia and facial numbness. BRAIN MR ANGIOGRAM: Negative cerebral MR angiography. NECK MR ANGIOGRAM: 1. No internal carotid artery stenosis bilaterally. 2. Patent bilateral vertebral arteries. The estimate of stenosis included in the report of the imaging study was calculated using the NASCET method ECG 12 Lead Rate 115 QTc 431 Sinus tachycardia Cardiac Echo Impression Echocardiogram Report Name: RICK FERRIS Date : 07/06/2016 Height: 69 in Hospital Exam Location: [facility] Weight: 250 lb Gender: Female BSA: 2.3 m2 : 1975 Age: 41 yrs BP: 125/90 mmHg Reason For Study: TIA Ordering Physician: HOSPITALIST SVHPerformed By: Zahida Dawkins Referring Physician: Dr. Daniel Narvaez Interpretation Summary The left ventricle is normal in size, wall thickness, and systolic function without any focal wall motion abnormalities. The ejection fraction is estimated to be 60-65%. Assessment of diastolic parameters indicates a relaxation abnormality of the left ventricle, consistent with normal filling pressures. The right ventricle is normal in size and function. Both atria are normal in size. There is no Doppler evidence for an atrial septal defect. Injection of contrast documented an interatrial shunt. Bubbles do appear in the left ventricle within 3 beats without Valsalva maneuver. There is no significant valvular heart disease. The aortic root is normal size. Brief History Patient is a 41 year old female with a history of tachycardia, fibromyalgia, Celiac disease, Raynaud's, and endometriosis. She presented to [facility]ED on with facial numbness. She reports the first incident happened yesterday while she was laying in bed. She compared that feeling to getting your mouth numbed for dental work. It lasted for a period of minutes and resolved spontaneously. Today it happened again while she was sitting on the couch talking with her . She had right sided facial numbness followed by aphasia, difficulty swallowing and difficulty moving her tongue. She also reported some blurry vision and a sensation of her eyes being heavy. She states that her told her it appeared the right eye was drooping. It lasted for a period of minutes that then resolved spontaneously. She denies any unusual weakness of her extremities. She denies any fever or chills. She has not had cold or flu type symptoms recently. She denies chest pain, shortness of breath, nausea, vomiting and diarrhea. She does report some dysuria. She has an ongoing issue with urinary incontinence and recently began using a new brand of pads. The dysuria began after that as well as mild suprapubic pain and low back pain. In the ED the patient is afebrile with a heart rate of 115, respiratory rate of 18, blood pressure of 138/97, and O2 saturation of 98% on room air. Labs were unremarkable. CT head was normal. Patient admitted to complete work up for TIA. Discussed with Dr. Davis. Hospital Course Patient is a 41 year old female with a history of tachycardia, fibromyalgia, Celiac disease, Raynaud's, and endometriosis. She presented to [facility]ED on with facial numbness, aphasia, dysphagia, and possible facial droop. Symptoms have resolved and CT negative. Plan to admit for further workup of CVA. 1. Possible TIA/stroke, acute, present on admission. - Risk factors include obesity, smoking history, family history of vascular disease. - EDC of the brain negative - MR stroke protocol was negative - Echocardiogram ordered was unremarkable - A1c, lipid panel ordered and pending. - Continue aspirin 81 mg daily. - Continue atorvastatin 40 mg HS. - Physical therapy evaluation ordered. - Speech therapy evaluation ordered. - Neuro checks Q4. - Neurology consult with Dr. Fitzpatrick. I spoke with Dr. Fitzpatrick today and he stated that the EEG from yesterday showed evidence of left temporal lobe seizure activity. He will see the patient in consultation. - Suspect patient has polypharmacy and will need to hold and/or decrease some of her medications in order to reduce interaction all side effects and toxicity. I reviewed her medications with Ann, the clinical pharmacist on the floor, and we have come up with a treatment plan for now: See orders we will await further recommendations from Dr. Fitzpatrick of neurology and follow his recommendations 2. Urinary tract infection with Escherichia coli greater than 100,000 colony- forming organisms per milliliter and a 41-year-old female -Dysuria, acute, present on admission, consistent with tract infection. - UA with bacteria and positive nitrate with 05 white blood cells - Macrobid given in ED x1. Will not continue at this time. - We will continue Rocephin day #2 pending susceptibility reports on the Escherichia coli - Patient reports irritation secondary to use of new incontinence pad product. Recommend cessation of that product and monitoring of symptoms. 3. Fibromyalgia, chronic, presume stable. - Patient on a significant number of medications some prescribed by her psychiatrist some prescribed by her pain medicine doctor - I suspect patient has a problem with polypharmacy and will await Dr. Lawrence Fitzpatrick's recommendations 4. Tachycardia, ongoing. - Outpatient work up initiated. Patient reports Holter monitor. - Echo to be done as above in #1. - Continue telemetry. 5. Celiac disease, chronic, presume stable. - When patient passes swallow, STRICT GLUTEN FREE DIET. - Bowel regimen PRN. - Antiemetic available PRN. - Antacid available PRN. - Tylenol available PRN mild pain, fever. Disposition: Patient was started on Keppra per Dr. Fitzpatrick and will be able to be discharged home today. PCP Daniel Narvaez MD Exam Vital Signs (Last) Date Time Temp Pulse Resp B/P Pulse Ox O2 Delivery O2 Flow Rate FiO2 07/08/16 13:04 36.8 98 16 125/81 97 Room Air Exam General: Patient is much less anxious today. She is calm and comfortable. HEENT: Head is atraumatic normocephalic. Eyes: Pupils are equally round and reactive to light and accommodation. Extraocular muscles are intact. Sclera are white anicteric. Subconjunctival mucosa is pink. Ears and nose are unremarkable. Oropharynx: There is no mucosal lesions, there is no thrush, there is no pharyngitis. Neck: Is supple, there are no nodes, or masses, or tenderness. Chest: Is clear to auscultation and percussion. There are no rales, rhonchi, wheezes or rubs. Heart: Rate, rhythm is regular. There is no murmur, rub or gallop. Abdomen: Good bowel sounds are present. Abdomen is obese, soft, nontender, no organomegaly or masses were appreciated. Extremities: Are symmetrical and well perfused. There is no edema, there is no cellulitis, no rash. Neurologic: There are no focal neurological deficits. Cranial nerves II through XII are intact. There are no sensory or motor deficits. Psychiatric: Patients mood is labile due to concern over all of her medications. Genital: Deferred Rectal: Deferred Test 07/05/16 23:00 07/05/16 23:20 07/07/16 06:10 07/08/16 07:52 Urine Color Yellow (YELLOW) Urine Appearance Clear (CLEAR,HAZY) Urine pH 7.0 (5.0-8.0) Urine Specific [place] <1.005 (1.003-1.035) Urine Protein Negativemg/dL (NEG,TRACE) Urine Glucose (UA) Negativemg/dL (NEGATIVE) Urine Ketones Negativemg/dL (NEGATIVE) Urine Occult Blood Negative (NEGATIVE) Urine Nitrite Positive (NEGATIVE) Urine Bilirubin Negative (NEGATIVE) Urine Urobilinogen Normalmg/dL (NORMAL) Urine Leukocyte Esterase Negative (NEGATIVE) Urine RBC 0-2/hpf (0-2) Urine WBC 0-5/hpf (0-5) Urine Epithelial Cells Few/hpf (NONE-MOD) Urine Crystals None seen (NONE SEEN) Urine Bacteria Moderate/hpf (NONE-FEW) Urine Hyaline Casts None/lpf (NONE) Urine Granular Casts None seen (NONE SEEN) Urine Waxy Casts None seen (NONE SEEN) Urine Red Blood Cell Casts None seen (NONE SEEN) Urine White Blood Cell Casts None seen (NONE SEEN) Urine Mucus None seen (None Seen) Urine Trichomonas None seen (NONE SEEN) Urine Yeast None (NONE SEEN) Urinalysis Comment None Urine Culture Reflexed Indicated Hemoglobin A1c 5.4% (4.8-5.6) Triglycerides Level 101mg/dL (0-149) Cholesterol Level 179mg/dL (100-199) LDL Cholesterol, Calculated 120.800mg/dL (0-99) VLDL Cholesterol 20.200mg/dL HDL Cholesterol 38mg/dL (>39) Cholesterol/HDL Ratio 4.71 (0.0-4.4) HCG Beta Subunit < 0.500mIU/mL Hold [place]ams Top Tube Received (Received) Phosphorus Level 3.4mg/dL (2.5-4.9) Thyroid Stimulating Hormone (TSH) 6.200uIU/mL (0.450-4.500) White Blood Count 6.7th/mm3 (3.8-10.1) Red Blood Count 4.51mil/mm3 (3.90-5.20) Hemoglobin 14.3g/dL (12.0-15.6) Hematocrit 41.9% (35.0-46.0) Mean Corpuscular Volume 92.9fL (81-100) Mean Corpuscular Hemoglobin 31.7pg (27.0-35.0) Mean Corpuscular Hemoglobin Concent 34.1% (32.0-37.0) Red Cell Distribution Width 13.2% (12.3-15.4) Platelet Count 139bil/L (150-400) Neutrophils (%) (Auto) 49.5% (40-74) Lymphocytes (%) (Auto) 35.1% (14-46) Monocytes (%) (Auto) 9.8% (4-12) Eosinophils (%) (Auto) 4.0% (0-5) Basophils (%) (Auto) 0.4% (0-3) Sodium Level 142mEq/L (134-144) Potassium Level 4.8mEq/L (3.5-5.2) Chloride Level 107mEq/L (97-108) Carbon Dioxide Level 18mmol/L (18-29) Blood Urea Nitrogen 9mg/dL (6-24) Creatinine 0.72mg/dL (0.57-1.00) Estimat Glomerular Filtration Rate 127mL/min (>59) Glucose Level 101mg/dL (60-99) Calcium Level 8.5mg/dL (8.5-10.1) Magnesium Level 2.1mg/dL (1.6-2.6) Total Bilirubin 0.6mg/dL (0.0-1.2) Aspartate Amino Transf (AST/SGOT) 21U/L (0-50) Alanine Aminotransferase (ALT/SGPT) 19U/L (0-32) Alkaline Phosphatase 63U/L (25-150) Total Protein 6.7g/dL (6.4-8.4) Albumin 4.1g/dL (3.4-5.0) Microbiology Results Name: KIERSTENINGATeraRICK Age/Sex: 41/F Attend Dr: Alexx Herr MD Acct: [id number] Unit: [id number] Status: ADM [place] [facility] [place] Re07/06/16 Disch: Specimen: [id number] Collected: 07/05/16 Status: RES Req#: [id number] Received: 07/05/16 Source: RANDOM Sp Desc : Subm Dr: TERRELL,JAMIE EUBANKS Ordered: URINE CULT Procedure Result Verified Site Microbiology BIANCA CULT URINE Preliminary 07/07/16 PRELIMINARY ID GRAM NEG KEYSHAWN, PROBABLE E COLI SUSCEPTIBILITIES TO FOLLOW COLONY COUNT/QUANTITY >100,000 CFU/ml Discharge Medications Discharge Medications Aspirin Chew (Aspirin Chew) 81 Mg Chew 81 MG PO DAILY Prescribed by: LAKSHMI PALAFOX MD Atorvastatin Calcium (Atorvastatin Calcium) 40 Mg Tablet 40 MG PO HS Prescribed by: LAKSHMI PALAFOX MD Baclofen (Baclofen) 10 Mg Tablet 10 MG PO HS Prescribed by: LAKSHMI PALAFOX MD Buspirone (Buspirone) 30 Mg Tablet 30 MG PO BID (Reported) Levetiracetam (Keppra) 500 Mg Tablet 500 MG PO BID Prescribed by: LAKSHMI PALAFOX MD Quetiapine Fumarate (Quetiapine Fumarate) 100 Mg Tablet 200 MG PO HS Prescribed by: LAKSHMI PALAFOX MD As needed Lorazepam (Ativan) 1 Mg Tablet 1 MG PO TID PRN PRN For Anxiety or Agitation Prescribed by: LAKSHMI PALAFOX MD Miscellaneous Medications Duloxetine (Cymbalta) 60 Mg Capsule.dr 60 MG PO (Reported) Followup Plan Disposition: Patient is being discharged home Discharge Diet: Heart Healthy Discharge Activity: No restrictions (May resume usual activity gradually as tolerated) Follow-up Provider: Daniel Narvaez MD Follow-up with PCP in: 1 week Provider: Lawrence Fitzpatrick MD Follow-up in: 2 weeks Time spent Time spent on discharging this patient was greater than 35 minutes, over half of which was involved in counseling and coordination of care. Reg Palafox MD Jul 09, 2016 02:03
--- NOTE | 2016-07-28 09:12 | PROCED ---
[address] [address] EEG PATIENT: RICK FERRIS : 1975 MR#: [id number] ADMIT: 07/06/2016 JOB ID: [id number] DATE OF SERVICE: 07/06/2016 HISTORY: The patient is a 41-year-old woman with reportedly two spells of altered mental status. TECHNICAL DESCRIPTION: This digital EEG was recorded using 25 scalp and ear, and two EKG electrodes. It was reviewed in bipolar and referential montages following reformatting in the 10-20 [employer] Electrode Placement System. During the recording, the patient was noted to be awake, drowsy and asleep. The background was composed of 9.5-10 hertz, 10-20 microvolt symmetrical and reactive posterior dominant rhythm that attenuated with eye opening. The rest of the background was composed of low voltage faster frequencies. There was intermittent sharply contoured slowing primarily over the left temporal head region, T3 and T5. There were no seizures seen. Hyperventilation was not performed due to reported history of cardiac disease. Photic stimulation from 1-30 hertz elicited symmetric photic driving at the mid to upper frequencies. Sleep was characterized by the attenuation of the alpha rhythm and the appearance of symmetrical vertex waves, heralding stage 1 of sleep. This was followed by the development of symmetrical sleep spindles, heralding stage 2 of sleep. The EKG rhythm strip revealed a heart rate of 60-80 beats per minute with no apparent arrhythmias. IMPRESSION: This electroencephalogram performed in the awake, drowsy and sleep states is abnormal. The intermittent and sharply contoured slowing over the left temporal head region is suggestive of an underlying focal or functional defect with epileptogenic potential. Clinical and/or neuroimaging correlation is advised.
--- NOTE | 2016-07-28 13:59 | CONS ---
[address] [address] CONSULTATION REPORT PATIENT: RICK FERRIS : 1975 MR#: [id number] ADMIT: 07/06/2016 JOB ID: [id number] DATE OF SERVICE: 07/07/2016 NEUROLOGY CONSULTATION: CHIEF COMPLAINT: Spells. HISTORY OF PRESENT ILLNESS: The patient is a pleasant 41-year-old woman with multiple medical problems, who presented with sudden onset of a brief episode of facial numbness. Reportedly she was lying in bed when she developed the sensation of numbness on one side of her mouth. It lasted for several minutes and then resolved completely. She had a 2nd episode also of right-sided facial numbness; however, this one was followed by difficulty with word-finding, difficulty swallowing, and difficulty moving her tongue, as well as blurred vision. This episode also lasted for several minutes and then resolved spontaneously. Her is at the bedside and corroborates the history. There is a question whether with the 2nd episode there was ptosis of the right eye. She reports that these are new symptoms and she has never had any similar symptoms in the past. She reports no history of seizures. She does have multiple medical problems and is on multiple different medications. There was concern for possible transient ischemic attack and she was admitted through the emergency department. She reports that the episodes that she has had have involved the right side of her face. She reports no neck pain. She reports no head trauma or neck trauma. NIH stroke scale was zero in the emergency department. Laboratory studies in the emergency department: WBC of 7.5 hemoglobin 14.6, hematocrit 42.6, platelets of 245. Sodium 138, potassium 3.9, chloride was 103, bicarb 21, BUN was 6, creatinine 0.80, and glucose was 109. Urinalysis: Positive urine nitrites and few urine epithelial cells, moderate urine bacteria. CT of head without contrast was performed that is normal. Decision was made to start her on aspirin and admit for remainder of stroke workup. She subsequently underwent a magnetic resonance imaging study of her brain which demonstrated no acute intracranial abnormality. No recent infarct. No explanation for aphasia and facial numbness. An MRA was performed that was unremarkable of her brain. An MRA angiogram of her neck demonstrated no internal carotid artery stenosis bilaterally, with patent vertebral arteries bilaterally. I did review this study. No evidence of stroke or dissection noted. An echocardiogram was performed, which demonstrated that the left ventricle was normal in size, wall thickness, and systolic function, without any focal wall motion abnormalities. Ejection fraction was estimated to be 60% to 65%. Assessment of diastolic parameters indicates a relaxation abnormality of the left ventricle, consistent with normal filling pressures. The right ventricle was normal in size and function. Both atria are normal in size. There was no significant valvular heart disease and the aortic root was normal. She also underwent an electroencephalogram, which I reviewed in detail, and demonstrated intermittent and sharply contoured slowing over the left temporal head region. She reports no history of seizures. She has noted that there have been multiple different medication changes performed recently. Reportedly she had another episode of transient numbness of the right side of her tongue and lips in the perioral region lasting for several minutes with complete resolution in the hospital. EKG rate of 115, QTc was 431 with sinus tachycardia. Reviewed differential diagnosis in detail with patient. Risk factors for a vascular etiology include obesity, smoking history, and family history of vascular disease. So far, the workup has been unremarkable for a vascular etiology. She is on atorvastatin 40 mg q.h.s. and aspirin 81 mg daily. There was also a concern regarding the possibility of polypharmacy and Dr. Palafox reviewed her medications with Ann, the clinical pharmacist, to come up with a treatment plan. She was given Macrobid in the emergency department x1. She is on a gluten free diet. REVIEW OF SYSTEMS: A complete review of systems was performed and was remarkable for the above-noted. ALLERGIES: Gluten, midazolam, penicillin, sulfa, benzoyl peroxide. HOME MEDICATIONS: Topamax, hydroxyzine, cyclobenzaprine, Cymbalta, Seroquel, Buspar, Lyrica, Butrans patch. PAST MEDICAL HISTORY: Fibromyalgia, tachycardia, celiac disease, Raynaud phenomenon, endometriosis, and Graves disease reportedly in remission. PAST SURGICAL HISTORY: s/p cholecystectomy s/p appendectomy FAMILY HISTORY: Multiple sclerosis in an aunt, who also has a history of a stroke. Her father had a myocardial infarction at age 40 and a brain tumor with seizures. Her mother had coronary artery disease, atrial fibrillation, and type 2 diabetes. SOCIAL HISTORY: Lives with her . Former smoker. No alcohol or drug use. OBJECTIVE: Temperature 36.8, pulse of 37, respiratory rate of 22, blood pressure 107/70, pulse oximetry 99% on room air. General: She is a well-developed, well-nourished woman in no acute distress. Head: Normocephalic, atraumatic. Neck: Supple. No carotid bruits were auscultated. Chest: Clear to auscultation. Heart: Regular rate and rhythm, a little tachycardic. Abdomen: Soft, nondistended, nontender. Extremities: No cyanosis, clubbing, or edema. NEUROLOGIC EXAMINATION: Mental status: She is awake, alert, and oriented x3. Speech clear and fluent with intact comprehension. There was no aphasia. Cranial nerves: Pupils equal, round, and reactive to light. Extraocular movements were smooth and conjugate, with no evidence of nystagmus. Face appeared symmetrical. Facial sensation was intact to light touch and temperature. Auditory sensation was intact to finger rub. Palatal elevation was symmetrical. Tongue was midline. Sternocleidomastoid and trapezii are 5/5 bilaterally. Gait: Deferred. Motor: Normal tone and bulk. Muscle strength 5/5 throughout. Sensation intact to light touch and temperature. Deep tendon reflexes 2+ and symmetrical. Plantars were flexor bilaterally. Coordination: Euaure-hb-kore was intact bilaterally, with no evidence of dysmetria. Sensation intact to light touch and temperature. IMPRESSION: Multiple stereotyped transient neurologic symptoms of numbness as well as aphasia. Reviewed the differential diagnosis in detail with the patient and her . The magnetic resonance imaging studies have not revealed any evidence of a vascular event or etiology. Although it is certainly possible that these may represent recurrent transient ischemic attacks, statistically at this point a stroke should have occurred and should be visible on imaging studies. She reports that the episodes have been transient in nature, never lasting more than several minutes in duration, and then resolving spontaneously. In light of the abnormal electroencephalogram involving sharply contoured activity over the left temporal head region, correlating with the right sided transient neurologic symptoms, my suspicion is that this may represent an ictal etiology for her events. RECOMMENDATIONS: I recommend Keppra 500 mg b.i.d. We discussed avoiding driving for six months. We discussed avoiding heights and swimming alone. We discussed the differential diagnosis in detail. My suspicion is that these events may be ictal in nature as opposed to vascular events such as transient ischemic attacks. In any case, I do recommend that she stay on aspirin as she does have multiple vascular risk factors. However, a clear etiology for a vascular event has not been apparent so far on any of the workup that has been performed. In light of the abnormal electroencephalogram and the clinical history, I do recommend starting levetiracetam 500 mg twice daily. Reviewed side effects in detail with the patient and her . She may also benefit from an outpatient electroencephalogram and further evaluation including a possible video electroencephalogram, especially if she continues to have episodes. I recommend that she follow up with her primary care provider. She would also benefit from followup in the Neurology Clinic. Seizure and fall precautions were discussed in detail with the patient and her . Advised regarding need for contraception while on Keppra. Thank you, again, Dr. Reg Palafox, for allowing me to participate in the care of your patient. Please feel free to contact me with any questions or concerns. BROCK
== END 2016-07-08 17:31 | disposition home or self-care (01) ==
LOC: SED 21:28 → OSC 07-06 02:40
PROVIDERS: ADMIT Hospitalist; ATTEND Hospitalist
DX: R56.9 Unspecified convulsions (principal); N39.0 Urinary tract infection, site not specified; R00.0 Tachycardia, unspecified; K90.0 Celiac disease; I73.00 Raynaud's syndrome without gangrene; M79.7 Fibromyalgia
CPT/HCPCS: 36415; 70450; 70549; 70553; 80053; 80061; 81000; 81025; 82948; 83036; 83735; 84100; 84443; 84702; 85025; 87086; 87088; 87186; 92610; 93005; 95816; 97161; 99285; A9585; C8929; G0378; G8978; G8979; G8980; J0696; J1650; J2405; J7050; Q9957

== ENCOUNTER 2016-08-01 21:56 | Emergency (ER) | payer OTHER ==
[~2016-08-01] VITALS: Ht 175.3 cm; Wt 109.1 kg
[~2016-08-01 21:56] MED LIST changes: +ASPI81TA3 PO; +ATOR40TA69 PO; +BACL10TA PO; -BUSP15 PO; +BUSP30TA2 PO; -CITA10TA14 PO; +DULO60CA42 PO; +KEP500TA PO; +LORA-303 PO; -LORA-781 PO; -ONDA4TAB48 PO; +QUET100T69 PO
[2016-08-01 22:01] VITALS: BP 132/80; PULSE 143; RESP 18; O2SAT 98
[2016-08-01 22:28] LABS: BASOPHILS % (AUTO) 0.4 % (0-3); MONOCYTES % (AUTO) 8.8 % (4-12); Mean Corpuscular Hemoglobin 31.7 pg (27.0-35.0); Mean Corpuscular Volume 92.5 fL (81-100); NEUTROPHILS % (AUTO) 55.5 % (40-74); Platelet Count 252 bil/L (150-400)
[2016-08-01 22:48] LABS: TROPONIN T 0.01 ug/L (0.0-0.011)
--- NOTE | 2016-08-01 22:52 | ED.REPORT ---
HPI-General Illness Date of Service Aug 01, 2016 ED Provider: Basil Buitrago MD Patient is a 41 year old female with a history of seizure disorder, anxiety, fibromyalgia, Raynaud's Phenomenon, and intermittent tachycardia who presents to the ED after she experienced heart palpitations this evening. Patient states that she was resting on the couch when her heart rate suddenly increased to the 160s. She describes the sensation of her heart pounding in her chest, with associated discomfort. Patient states that she became lightheaded and weak. Her rate has decreased since that time. Patient states that her heart rate is typically rapid, with a resting heart rate in the 90s. She often becomes tachycardic at rest, of unknown etiology. She also has episodes when her heart rate drops and she becomes diaphoretic, usually with a rate in the 60s. She recently underwent Holter monitoring and has an appointment on August 18 with her PCP, Dr. Narvaez, in order to go over the results. Patient was also recently diagnosed with a focal seizure disorder, following hospital admission last month. She is followed by Dr. Fitzpatrick (neurology) and is prescribed Keppra. Patient has not had a full tonic-clonic seizure, but that she has experience progressive seizure symptoms that were concerning. Her seizure symptoms are pressure under her eyes, facial numbness, and facial muscle spasms. Patient admits to a history of anxiety and panic attacks. Dr. Fitzpatrick stopped her Lyrica , Cyclobenzaprine, and Topamax after she began Keppra while in the hospital. Patient reports having increased pain since stopping some of these medications, but that this was expected. She was also told that she could experience increased anxiety and emotional distress. She was on Lorazepam short term during this transition. Patient is currently taking a Butrans patch, Cymbalta, Baclofen, BuSpar, Seroquel, Atorvastatin, and 81mg aspirin. Patient states that she also developed an itchy rash on her chest and back yesterday. Nursing Notes Stated Complaint: HEART POUNDING,HIGH PULSE,WEAKNESS Chief Complaint: Dysrhythmia/Cardiac Nursing Notes Reviewed: Yes Allergies: Coded Allergies: gluten (Verified Allergy, Severe, 08/01/16) confirmed celiac disease midazolam HCl (Verified Allergy, Severe, Anaphylaxis, 08/01/16) Penicillins (Verified Adverse Reaction, Unknown, 08/01/16) Sulfa (Sulfonamide Antibiotics) (Verified Adverse Reaction, Unknown, ) Uncoded Allergies: BENZYL PEROXIDE (Adverse Reaction, Unknown, face broke out, 10/18/15) Scheduled Aspirin Chew (Aspirin Chew) 81 Mg Chew 81 MG PO DAILY Atorvastatin Calcium (Atorvastatin Calcium) 40 Mg Tablet 40 MG PO HS Baclofen (Baclofen) 10 Mg Tablet 10 MG PO HS Buspirone (Buspirone) 30 Mg Tablet 30 MG PO BID Levetiracetam (Keppra) 500 Mg Tablet 500 MG PO BID Quetiapine Fumarate (Quetiapine Fumarate) 100 Mg Tablet 200 MG PO HS Scheduled PRN Lorazepam (Ativan) 1 Mg Tablet 1 MG PO TID PRN PRN For Anxiety or Agitation Lorazepam (Lorazepam) 1 Mg Tablet 1 MG PO TID PRN PRN For Anxiety Miscellaneous Medications Duloxetine (Cymbalta) 60 Mg Capsule.dr 60 MG PO General Time Seen by MD: 22:51 Chief Complaint Other (palpitations) Hx Obtained From: Patient Arrived By: Walk-in Sudden in Onset?: No Onset Occurred: Just prior to arrival Symptom Duration: Since onset Quality: Painful Severity: Current: No pain currently Severity: Maximum: Mild Recent Healthcare: Recent doctor visit, Recent hospitalization Similar Sx Previous: Yes Past Medical History Past Medical History Seizure disorder on Keppra (focal temporal seizures) Fibromyalgia Anxiety Osteoarthritis Celiacs disease Grave's disease Endometriosis Raynaud's Phenomenon Intermittent tachycardia Past Surgical History Reports: Cholecystectomy, Tonsillectomy Smoking History Former Smoker Social History Alcohol Use: Denies alcohol use Drug Use: Denies drug use Other Social History: Good social support, , Lives with children, 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 Physical Exam Vital Signs Vital Signs Date Time Temp Pulse Resp B/P Pulse Ox O2 Delivery O2 Flow Rate FiO2 08/02/16 02:24 94 15 107/66 98 Room Air 08/02/16 01:43 112 112/77 08/02/16 01:42 100 115/78 08/01/16 23:43 108 08/01/16 23:25 115 16 123/81 97 Room Air 114/81 107/85 08/01/16 22:01 36.7 143 18 132/80 98 Room Air Initial VS: Reviewed, Vital signs abnormal Head / Eyes: Atraumatic, Normocephalic, PERRL ENT: Conjunctiva normal, No scleral icterus Neck: Supple, Full range of motion Abdomen / GI: Soft, Non-tender Extremities: Vascular intact, Neuro intact, No swelling Skin: Warm, Dry, No cyanosis Neurologic: Alert, Oriented, Nonfocal Psychiatric: Mood/affect normal, Behavior normal, Normal thought content General/Constitutional: Awake, Alert, No acute distress Behavior: Positive: Anxious Appearance / Presentation: Positive: Obese Respiratory / Chest: Breath sounds NL, Breath sounds = bilat, No respiratory distress, No rales, No rhonchi, No wheezing Cardiovascular: Regular rhythm, Heart sounds NL, No murmurs Heart Rate / Rhythm: Positive: Tachycardia (120s) Interpretation & Diagnostics Lab Results Interpretation Result Diagram: 08/01/16221708/01/16 2218 Test 08/01/16 22:18 White Blood Count 10.4th/mm3 (3.8-10.1) Red Blood Count 4.83mil/mm3 (3.90-5.20) Hemoglobin 15.3g/dL (12.0-15.6) Hematocrit 44.7% (35.0-46.0) Mean Corpuscular Volume 92.5fL (81-100) Mean Corpuscular Hemoglobin 31.7pg (27.0-35.0) Mean Corpuscular Hemoglobin Concent 34.2% (32.0-37.0) Red Cell Distribution Width 12.7% (12.3-15.4) Platelet Count 252bil/L (150-400) Neutrophils (%) (Auto) 55.5% (40-74) Lymphocytes (%) (Auto) 31.7% (14-46) Monocytes (%) (Auto) 8.8% (4-12) Eosinophils (%) (Auto) 3.0% (0-5) Basophils (%) (Auto) 0.4% (0-3) Sodium Level 138mEq/L (134-144) Potassium Level 3.9mEq/L (3.5-5.2) Chloride Level 101mEq/L (97-108) Carbon Dioxide Level 22mmol/L (18-29) Blood Urea Nitrogen 7mg/dL (6-24) Creatinine 0.71mg/dL (0.57-1.00) Estimat Glomerular Filtration Rate 129mL/min (>59) Glucose Level 120mg/dL (60-99) Calcium Level 9.2mg/dL (8.5-10.1) Magnesium Level 2.0mg/dL (1.6-2.6) Total Bilirubin 0.5mg/dL (0.0-1.2) Aspartate Amino Transf (AST/SGOT) 18U/L (0-50) Alanine Aminotransferase (ALT/SGPT) 17U/L (0-32) Alkaline Phosphatase 72U/L (25-150) Troponin T 0.010ug/L (0.0-0.011) Total Protein 7.9g/dL (6.4-8.4) Albumin 4.7g/dL (3.4-5.0) Hold Willams Top Tube Received (Received) Lab values outside NL range: no clinical significance. ECG Interpretation ECG Interpretation: Sinus tachycardia, Rate 126 Time: 22:16 Interpreted by: ED physician Normal ECG Interpretation: No acute ischemic changes, No change from prior ECGs X-Ray Chest Interpretation Chest Xray Interpretation: Impression: No acute cardiopulmonary process. Interpretation / Wet Read by: Wet read ED physician Re-Eval/Medical Decision Med Decision/Clinical Course The exact cause of your rapid heart rate is not certain. It could be caused by the Seroquel. It did improve with hydration so it may be related to poor oral intake. Recommend that you continue to push fluids and taper off of your Seroquel. Lorazepam 1 mg twice daily as needed for anxiety/withdrawal symptoms. Source of Hx: Old records Time of Eval: 01:01 Re-Evaluation/Progress Note: Rechecked the patient. Discussed results of her labs, EKG, and chest x-ray. Will give her additional fluid and recheck orthostatic vital signs. Time of Eval: 02:10 Patient Status: Condition improved Re-Evaluation/Progress Note: Patient is improved with additional fluids. Patient understands and agrees with the plan to be discharged home. Discharge instructions and follow-up discussed. All questions were addressed. Return to the ED warnings given. Counseled Regarding: Diagnosis, Lab results, Need for follow-up, When/why to return to ED Discharge & Departure Primary Impression: Tachycardia Disposition: Home Discharge Condition All VS Reviewed: Yes Condition: Stable Patient Instructions: Quetiapine (By mouth) Additional Instructions: I suspect that you are high pulse rate and low blood pressure are related to mild dehydration and your Seroquel. Recommend that you taper off the Seroquel. I discussed this with your primary doctor. Lorazepam 1 mg twice a day as needed for anxiety/withdrawal symptoms, #10 prescription written. Referrals: Daniel Narvaez MD (PCP) Scribe Attestation Portions of this note were transcribed by Taryn Burgess. I, Dr. Buitrago personally performed the history, physical exam and medical decision-making; I reviewed and confirmed the accuracy of the information in the transcribed note. Signed by: Zuleika Hein, 08/02/2016 0215 copies to: Daniel Narvaez MD, Howard L MD Aug 01, 2016 22:52 Taryn Burgess Aug 01, 2016 23:12
[2016-08-01 23:25] VITALS: BP_SYST 107; BP_SYST 114; BP_SYST 123; BP_DIAS 81; BP_DIAS 85; PULSE 115; RESP 16; O2SAT 97
[2016-08-01 23:43] VITALS: PULSE 108
[2016-08-02] MEDS ORDERED: 0.9% Sodium Chloride 1,000 ML IV ONE (00:50)
[2016-08-02 01:42] VITALS: BP 115/78; PULSE 100
[2016-08-02 01:43] VITALS: BP 112/77; PULSE 112
[2016-08-02] MEDS ORDERED: LORA1TAB PO (02:10)
[2016-08-02 02:24] VITALS: BP 107/66; PULSE 94; RESP 15; O2SAT 98
--- NOTE | 2016-08-02 08:58 | DRSVH ---
PROCEDURE: X-RAY CHEST ONE VIEW, PORTABLE ([id number]) INDICATIONS: tachycardia TECHNIQUE: One view of the chest was acquired. COMPARISON: None. FINDINGS: Surgical changes and devices: None. Lungs and pleura: No pleural effusions or pneumothorax. Lungs are clear. Mediastinum: Mediastinal contours appear normal. Heart size is normal. Bones and chest wall: No suspicious bony lesions. Overlying soft tissues appear unremarkable. IMPRESSION: No acute cardiopulmonary disease. Dictated by: Jj Cardona [facility] Interpreted: Mirta Mayer MD on 08/02/2016 at 8:58 Transcribed by: CHEPE on 08/02/2016 at 8:58 Approved by: Mirta Mayer MD, PhD on 08/02/2016 at 11:47
== END 2016-08-02 02:25 | disposition home or self-care (01) ==
LOC: SED 21:56
DX: R00.0 Tachycardia, unspecified (principal); R21 Rash and other nonspecific skin eruption; E86.0 Dehydration; F41.0 Panic disorder [episodic paroxysmal anxiety]; G40.909 Epilepsy, unspecified, not intractable, without status epilepticus; M79.7 Fibromyalgia; I73.00 Raynaud's syndrome without gangrene; Z87.891 Personal history of nicotine dependence; Z79.82 Long term (current) use of aspirin; Z88.8 Allergy status to other drugs, medicaments and biological substances; Z88.0 Allergy status to penicillin; Z88.2 Allergy status to sulfonamides
CPT/HCPCS: 36415; 71010; 80053; 83735; 84484; 85025; 93005; 96360; 99285; J7030